=== PATIENT | female | born 1990 | race Caucasian/White ===

== ENCOUNTER 2017-05-15 08:20 | Emergency (ER) | payer OTHER ==
[2017-05-15 08:26] VITALS: BP 133/78; PULSE 81; RESP 16; TEMP 97.9
[2017-05-15] MEDS ORDERED: ORPHENADRINE 30 MG/ML 2 ML VIAL IM STA (08:58)
[2017-05-15] MEDS ORDERED: methylPREDNISolone SOD SUCCI 125 MG/2 ML VIAL IM STA (08:58)
--- NOTE | 2017-05-15 09:03 | ED ---
General Adult HPI - General Chief complaint: Extremity Problem,Nontraumatic Stated complaint: Neck and shoulder pain Time Seen by Provider: 05/15/17 08:46 Source: patient, RN notes reviewed Mode of arrival: ambulatory Limitations: no limitations - History of Present Illness Initial comments: 26-year-old female presents to the emergency Department chief complaint of right -sided neck pain. Patient states that she woke up Friday with a stiff neck. She states that slowly gallop better throughout the day however she does have a history of rheumatoid so she does not know if this was a flare diagnosis steroids. She states she woke up the next day With similar tightness. She took Another dose of steroids. Patient states that she does take a muscle relaxer at night that does seem to help her symptoms do so she does not know if maybe it muscle or her rheumatoid. Patient denies any fevers or chills. Patient states is not over the bones is over the right side of the neck along the top of the right shoulder. Patient denies any falls traumas or injuries. Patient states is no numbness and tingling. Patient denies any other symptoms at this time. Patient denies any recent fever, chills, shortness of breath, chest pain, back pain, abdominal pain, nausea vomiting, numbness or tingling, dysuria or hematuria, constipation or diarrhea, headaches or visual changes, or any other current symptoms. - Related Data Home Medications Medication Instructions Recorded Confirmed Cholecalciferol [Vitamin D3] 5,000 unit PO DAILY 05/15/17 05/15/17 Gabapentin [Neurontin] 300 mg PO DAILY 05/15/17 05/15/17 Gabapentin [Neurontin] 600 mg PO HS 05/15/17 05/15/17 metFORMIN HCL [Glucophage] 500 mg PO BID 05/15/17 05/15/17 traMADol HCL [Ultram] 50 mg PO QID 05/15/17 05/15/17 Previous Rx's Medication Instructions Recorded Orphenadrine [Norflex] 100 mg PO Q12H #10 tablet.er 05/15/17 Allergies Allergy/AdvReac Type Severity Reaction Status Date / Time meperidine [From Demerol] Allergy Itching Verified 05/15/17 08:40 Review of Systems ROS Statement: Those systems with pertinent positive or pertinent negative responses have been documented in the HPI. ROS Other: All systems not noted in ROS Statement are negative. Past Medical History Past Medical History: Rheumatoid Arthritis (RA), Thyroid Disorder Additional Past Medical History / Comment(s): DDD History of Any Multi-Drug Resistant Organisms: None Reported Past Surgical History: Tonsillectomy Past Psychological History: No Psychological Hx Reported Smoking Status: Former smoker Past Alcohol Use History: None Reported Past Drug Use History: None Reported General Exam Limitations: no limitations General appearance: alert, in no apparent distress Head exam: Present: atraumatic, normocephalic, normal inspection ENT exam: Present: normal exam, mucous membranes moist Neck exam: Present: normal inspection, tenderness (Over the right lateral aspect of the neck), full ROM, other (Tenderness to the trapezius). Absent: meningismus, lymphadenopathy Respiratory exam: Present: normal lung sounds bilaterally. Absent: respiratory distress, wheezes, rales, rhonchi, stridor Cardiovascular Exam: Present: regular rate, normal rhythm, normal heart sounds. Absent: systolic murmur, diastolic murmur, rubs, gallop, clicks Psychiatric exam: Present: normal affect, normal mood Skin exam: Present: warm, dry, intact, normal color. Absent: rash Course Vital Signs 05/15/17 08:22 Temperature 97.9 F Pulse Rate 81 Respiratory 16 Rate Blood Pressure 133/78 O2 Sat by Pulse 98 Oximetry Medical Decision Making - Medical Decision Making 26-year-old female presents emergency Department chief complaint of what appears to be a trapezius strain. This and we'll start patient on muscle relaxers. We discussed close follow-up with a transport engineer. We discussed return parameters all patient's questions. They stated the [place] management plan. All questions have been answered. This time the patient will be discharged home. Disposition Clinical Impression: Cervical strain Disposition: HOME SELF-CARE Condition: Stable Instructions: Cervical Strain (ED) Additional Instructions: Please use medication as discussed. Please follow up with family doctor if symptoms have not improved over the next two days. Please return to the emergency room if your symptoms increase or worsen or for any other concerns. Prescriptions: Orphenadrine [Norflex] 100 mg PO Q12H #10 tablet.er Referrals: Rosina Campbell MD [STAFF PHYSICIAN] - 1-2 days Time of Disposition: 09:03
== END 2017-05-15 09:20 | disposition home or self-care (01) ==
LOC: EC 08:20
DX: S16.1XXA Strain of muscle, fascia and tendon at neck level, initial encounter (principal); M06.9 Rheumatoid arthritis, unspecified; Z87.891 Personal history of nicotine dependence; Z79.84 Long term (current) use of oral hypoglycemic drugs; Z79.899 Other long term (current) drug therapy; Z88.5 Allergy status to narcotic agent
CPT/HCPCS: 99283; 96372 ×2; J2360; J2930

== ENCOUNTER 2017-07-03 09:48 | Emergency (ER) | payer OTHER ==
[2017-07-03] MEDS ORDERED: KETOROLAC 60 MG/2 ML VIAL IM STA (11:16)
[2017-07-03] MEDS ORDERED: DEXAMETHASONE SOD PHOSPHATE 10 MG/ML 1 ML VIAL IM STA (11:16)
--- NOTE | 2017-07-03 11:19 | ED ---
General Adult HPI - General Chief complaint: Neck Pain/Injury Stated complaint: RA FLAIR Time Seen by Provider: 07/03/17 11:11 Source: patient, RN notes reviewed Mode of arrival: ambulatory Limitations: physical limitation - History of Present Illness Initial comments: Patient is a 26-year-old female who presents emergency room today with a chief complaint of increased neck pain. She does not that started yesterday and was worse this morning. She does admit to history of rheumatoid arthritis. She states that she's had flareup of neck pain in the past. States most recently approximately multiple strokes he was given 2 shots and she did feel better. Patient states is the same as was performed. Denies any injury or trauma. Denies any other complaints or symptoms. - Related Data Home Medications Medication Instructions Recorded Confirmed Cholecalciferol [Vitamin D3] 5,000 unit PO DAILY 05/15/17 07/03/17 Gabapentin [Neurontin] 300 mg PO DAILY 05/15/17 07/03/17 Gabapentin [Neurontin] 600 mg PO HS 05/15/17 07/03/17 Levothyroxine Sodium [Tirosint] 75 mcg PO DAILY 05/15/17 07/03/17 metFORMIN HCL [Glucophage] 500 mg PO BID 05/15/17 07/03/17 tiZANidine HCL [Zanaflex] 4 mg PO HS 05/15/17 07/03/17 traMADol HCL [Ultram] 50 mg PO QID 05/15/17 07/03/17 Allergies Allergy/AdvReac Type Severity Reaction Status Date / Time meperidine [From Demerol] AdvReac Itching Verified 07/03/17 10:38 Review of Systems ROS Statement: Those systems with pertinent positive or pertinent negative responses have been documented in the HPI. ROS Other: All systems not noted in ROS Statement are negative. Past Medical History Past Medical History: Rheumatoid Arthritis (RA), Thyroid Disorder Additional Past Medical History / Comment(s): DDD History of Any Multi-Drug Resistant Organisms: None Reported Past Surgical History: Tonsillectomy Past Psychological History: No Psychological Hx Reported Smoking Status: Former smoker Past Alcohol Use History: None Reported Past Drug Use History: None Reported General Exam - General Exam Comments Initial Comments: General: The patient is awake and alert, in no distress, and does not appear acutely ill. Eye: Pupils are equal, round and reactive to light, extra-ocular movements are intact. No nystagmus. There is normal conjunctiva bilaterally. No signs of icterus. Ears, nose, mouth and throat: There are moist mucous membranes and no oral lesions. Neck: The neck is supple, there is no tenderness or JVD. Cardiovascular: There is a regular rate and rhythm. No murmur, rub or gallop is appreciated. Respiratory: Lungs are clear to auscultation, respirations are non-labored, breath sounds are equal. No wheezes, stridor, rales, or rhonchi. Gastrointestinal: Soft, non-distended, non-tender abdomen without masses or organomegaly noted. There is no rebound or guarding present. No CVA tenderness. Bowel sounds are unremarkable. Musculoskeletal: Normal ROM, no tenderness. Strength 5/5. Sensation intact. Pulses equal bilaterally 2+. Neurological: A&O x 3. CN II-XII intact, There are no obvious motor or sensory deficits. Coordination appears grossly intact. Speech is normal. Skin: Skin is warm and dry and no rashes or lesions are noted. Psychiatric: Cooperative, appropriate mood & affect, normal judgment. Limitations: physical limitation Course Vital Signs 07/03/17 10:22 Temperature 97.8 F Pulse Rate 92 Respiratory 17 Rate Blood Pressure 119/75 O2 Sat by Pulse 99 Oximetry Medical Decision Making - Medical Decision Making Patient given dose of dexamethasone and Toradol here in emergency room. Patient states this is a chronic problem is nothing new today. Will be discharged home with a muscle relaxer to use if needed. Disposition Clinical Impression: Acute exacerbation of chronic low back pain Disposition: HOME SELF-CARE Condition: Good Instructions: Cervical Strain (ED) Additional Instructions: Please use medication as discussed. Please be aware that muscle relaxant may make you drowsy. Please follow-up with family doctor in the next 2 days of symptoms have not improved. Please return to emergency room if the symptoms increase or worsen or for any other concerns. Referrals: Laura Kay MD [Primary Care Provider] - 1-2 days Time of Disposition: 11:18
[2017-07-03 11:33] VITALS: BP 115/76; PULSE 89; RESP 18; TEMP 97.9
== END 2017-07-03 11:33 | disposition home or self-care (01) ==
LOC: EC 09:48
DX: G89.29 Other chronic pain (principal); M54.5 Low back pain; M06.9 Rheumatoid arthritis, unspecified; E07.9 Disorder of thyroid, unspecified; Z87.891 Personal history of nicotine dependence; Z79.899 Other long term (current) drug therapy; Z79.84 Long term (current) use of oral hypoglycemic drugs; Z88.5 Allergy status to narcotic agent
CPT/HCPCS: 99283; 96372 ×2; J1100; J1885

== ENCOUNTER → 2021-12-04 | Outpatient (CLI) | payer BC ==
--- NOTE | 2021-12-04 17:02 | XR ---
EXAMINATION TYPE: XR lumbar spine 2 or 3V DATE OF EXAM: 12/04/2021 COMPARISON: None HISTORY: Degenerative disc disease TECHNIQUE: 3 view lumbar spine FINDINGS: There are 5 lumbar-type vertebral bodies. Pedicles are intact. There is disc space narrowin g L5-S1. Remaining disc heights are preserved. Vertebral body heights are preserved. Minimal scoliosi s is present extending to the right. IMPRESSION: 1. Degenerative disc disease L5-S1
== END | disposition home or self-care (01) ==
LOC: RADXRMAIN 10:20
PROVIDERS: ATTEND Psychiatry & Neurology Clinical Neurophysiology
DX: M51.37 Other intervertebral disc degeneration, lumbosacral region (principal)
CPT/HCPCS: 72100

== ENCOUNTER → 2022-12-31 | Outpatient (CLI) | payer BC ==
[2022-12-31 09:38] LABS: Partial Thromboplastin Time 25.1 sec (22.0-30.0); Prothrombin Time 10.3 sec (9.0-12.0)
--- NOTE | 2022-12-31 15:39 | XR ---
EXAMINATION TYPE: XR chest 2V DATE OF EXAM: 12/31/2022 COMPARISON: None HISTORY: 32-year-old female Z0 1.812, preoperative exam for disc replacement TECHNIQUE: Frontal and lateral views FINDINGS: The cardiomediastinal silhouette, aorta, and pulmonary vasculature are within normal limits. Lungs an d pleural spaces are clear. IMPRESSION: No acute cardiopulmonary process.
[2022-12-31 16:22] LABS: ALT 13 U/L (8-44); AST 11 U/L (13-35); African American GFR (CKD) 104.1 (60.0-200.0); Albumin 4.3 g/dL (3.8-4.9); Albumin/Globulin Ratio 1.53 (1.60-3.17); Alkaline Phosphatase 38 U/L (41-126); BUN/Creat Ratio 21.49 Ratio (12.00-20.00); Blood Urea Nitrogen 18.2 mg/dL (9.0-27.0); Calcium 9.3 mg/dL (8.7-10.3); Carbon Dioxide 26.3 mmol/L (20.0-27.5); Chloride 103 mmol/L (96-109); Globulin 2.8 g/dL (1.6-3.3); Glucose 78 mg/dL (70-110); Non-African American GFR(CKD) 89.8 (60.0-200.0); Sodium 139 mmol/L (135-145); Total Bilirubin <0.15 mg/dL (0.30-1.20); Total Protein 7.1 g/dL (6.2-8.2)
[2022-12-31 16:35] LABS: HCT 35.1 % (37.2-46.3); HGB 10.1 g/dL (12.0-15.0); MCH 22.8 pg (27.0-32.0); MCHC 28.8 g/dL (32.0-37.0); MCV 79.2 fL (80.0-97.0); Mean Platelet Volume 10.4 fL (9.5-12.2); NRBC Per 100 WBC 0 /100 WBCS (0.0-0.0); Platelet Count 344 X 10*3/uL (140-440); RBC 4.43 X 10*6/uL (4.10-5.20); RDW 15.2 % (11.5-14.5); WBC 7.56 X 10*3/uL (4.50-10.00)
[2022-12-31 17:01] LABS: Appearance,Urine Clear (Clear); Bilirubin,Urine Negative (Negative); Blood,Urine Negative (Negative); Color,Urine Yellow (Yellow); Ketones,Urine Trace mg/dL (Negative); Nitrite,Urine Negative (Negative); PH, Urine 5.5 (5.0-8.0); Specific Gravity,Urine 1.026 (1.001-1.030)
== END | disposition home or self-care (01) ==
LOC: LABWHC1 08:22
PROVIDERS: ATTEND Orthopaedic Surgery
DX: Z01.812 Encounter for preprocedural laboratory examination (principal)
CPT/HCPCS: 36415; 71046; 80053; 81003; 85027; 85610; 85730; 93005